=== PATIENT | male | born 1980 | race Caucasian/White ===

== ENCOUNTER 2024-02-18 22:09 | Emergency (ER) | payer BC ==
[~2024-02-18] VITALS: Ht 175.3 cm; Wt 78.0 kg
[2024-02-18 22:25] VITALS: TEMP 98.1; O2SAT 100
[2024-02-19] MEDS: BACITRACIN ZINC OINT UDPKT TOP ONE (00:26)
[2024-02-19] MEDS: LIDOCAINE HCL/PF 1% 10 MG/ML 5ML VIAL INFIL ONE (00:26)
[2024-02-19] MEDS: TETANUS, DIPHTHERIA, PERTUSSIS VAC/PF 0.5ML (>10YR OLD) IM ONE (00:26)
[2024-02-19 00:45] VITALS: BP 124/82; PULSE 66; RESP 16; O2SAT 97
[2024-02-19] MEDS: CYCLOBENZAPRINE 10MG TABLET PO SCH (00:51)
== END 2024-02-19 00:45 | disposition home or self-care (01) ==
LOC: ER 22:09
DX: M79.643 Pain in unspecified hand (principal)
CPT/HCPCS: 90715; 12002; 99283; 90471; J3490; Z7610